=== PATIENT | male | born 1945 | race African-American/Black ===

== ENCOUNTER 2019-05-22 06:08 | Day surgery (SDC) | payer OTHER ==
[2019-05-21 09:34] VITALS: BMI 34.5
--- NOTE | 2019-05-21 13:45 | HP ---
Satellite [facility] - Chief Complaint Chief Complaint: right shoulder pain - Past Medical History Allergies/Adverse Reactions: Allergies Allergy/AdvReac Type Severity Reaction Status Date / Time cyclobenzaprine HCl Allergy Severe hepatitis Verified 12/29/14 14:03 [From Flexeril] - Current Medications Current Medications: Home Medications Medication Instructions Recorded Aspirin [Aspir 81] 81 mg PO DAILY 05/25/12 Cholecalciferol (Vitamin D3) 500 unit PO AM capsule 05/25/12 [Vitamin D3] Losartan Potassium 50 mg PO DAILY 12/29/14 Satellite Physical Exam - Physical Examination General Appearance: Well Nourished, Well Developed, Alert & Oriented x3 ENT: Clear Lung: Normal air movement Extremities: Other (right shoulder- + ttp, decr rom, + empty can, + neer, + malcolm, nvi, MRI + rct) Neurological: Intact, Alert, Oriented Satellite Impression/Plan - Impression/Plan Impression: right shoulder rct Operative Procedure: right shoulder arthroscopy with SAD and possible RCR Date to be Performed: 05/21/19
[2019-05-22] MEDS ORDERED: PROPOFOL 20 ML ONE ×2 (07:27)
[2019-05-22] MEDS ORDERED: ceFAZolin SODIUM 1 GM VIAL ONE (07:27)
[2019-05-22] MEDS ORDERED: DEXAMETHASONE SOD PHOSPHATE 4 MG/1 ML VIAL ONE (07:27)
[2019-05-22] MEDS ORDERED: ROPIVACAINE HCL 0.5% 30ML VIAL ONE (07:28)
[2019-05-22] MEDS ORDERED: SUCCINYLCHOLINE CHLORIDE 200 MG/10 ML SYRINGE ONE (07:28)
[2019-05-22] MEDS ORDERED: MIDAZOLAM HCL 2 MG/2 ML SINGLE DOSE VIAL ONE ×2 (07:29)
[2019-05-22] MEDS ORDERED: ceFAZolin SODIUM 1 GM VIAL IVPB ONE (08:21)
--- NOTE | 2019-05-22 09:42 | OP ---
Operative Note - Note: Operative Date: 05/22/19 ([facility]) Pre-Operative Diagnosis: right shoulder rct Operation: right shoulder arthroscopy with SAD Post-Operative Diagnosis: Same as Pre-op Surgeon: Joshua Cruz Anesthesiologist/NEGOTIATOR SALES: [employer] Anesthesia: General, Local Specimens Removed: shavings Estimated Blood Loss (mls): 5
[2019-05-22 11:33] VITALS: BP 102/63; PULSE 59; TEMP 97.8
[2019-05-22] MEDS ORDERED: oxyCODONE HCL 5 MG TABLET PO PRN (12:12)
[2019-05-22] MEDS ORDERED: ONDANSETRON 4 MG/2 ML VIAL IVPUSH PRN (12:12)
[2019-05-22] MEDS ORDERED: LACTATED RINGERS SOLUTION 1,000 ML IV SCH (12:15)
--- NOTE | 2019-05-23 11:03 | OP ---
DATE OF OPERATION: 05/22/2019 PREOPERATIVE DIAGNOSIS: Right shoulder impingement syndrome, glenohumeral arthritis, possible labral tear, and rotator cuff tear. POSTOPERATIVE DIAGNOSIS: Right shoulder impingement syndrome, glenohumeral arthritis, possible labral tear, and rotator cuff tear. PROCEDURE: Right shoulder arthroscopy, subacromial decompression, distal clavicle excision, and debridement. SURGEON: Joshua Montemayor MD BEREAVEMENT COUNSELOR: TEOFILO Marino ANESTHESIA: DRYWALL INSTALLER. Right interscalene block with LMA anesthesia. DRAINS: None. COMPLICATIONS: None. SPECIMENS: Arthroscopic shavings. BLOOD LOSS: Minimal. BLOOD GIVEN: None. FLUID REPLACEMENT: 1000 mL Plasma-Lyte. INDICATIONS: This patient is a 74-year-old male with a preoperative diagnosis of a right shoulder impingement morphology, glenohumeral arthritis, complete rotator cuff tear, and possible labral tear. After understanding the potential risks, complications, alternatives, and benefits to surgery versus nonsurgical treatment, the patient elected to undergo this procedure. DESCRIPTION OF PROCEDURE: The patient understands that he may have irreparable rotator cuff tear. He may need additional surgery in the future including the possibility of a reverse total shoulder replacement. Extensive preoperative discussions were had. He understands this and has elected to go forward with surgery. The patient was brought to the operating room. Peripheral IV place. IV sedation given; 2 g of IV Ancef were given. A right interscalene block was performed. LMA anesthesia was induced. He was placed into the beach chair position with ample padding throughout. The right upper extremity was prepped and draped in a sterile fashion. Bony landmarks were marked out with a marking pen. A posterior portal established and diagnostic glenohumeral arthroscopy was performed. Immediately it was apparent that there was a lot of intra-articular pathology. The patient had significant osteoarthritis of both the humeral head and the glenoid. The labrum looked quite frayed. The biceps tendon was gone, and the entire rotator cuff was gone. I could directly visualize the undersurface of the acromion from the glenohumeral side. An anterior portal was established under direct visualization using a spinal needle. A No. 15 scalpel blade and a green cannula were introduced into the glenohumeral joint. Using the ArthroCare wand and the straight shaver, I cleaned up the joint, got rid of a lot of synovitis, the frayed edges of the labrum, the biceps tendon, the rotator cuff and did debridement chondroplasties off both the glenoid and the humeral side. It cleaned up the joint significantly removing loose bodies and cartilage as well. Next, our attention turned to the subacromial space. The patient had a tremendous amount of inflammatory bursitis. A lateral portal was established first with a spinal needle under direct visualization then a green cannula was introduced into the subacromial space and a soft tissue bursectomy was performed with the ArthroCare wand and the straight shaver. After this extensive debridement was completed, this revealed a very large anterior subacromial spur but also a chronic deformity of the undersurface of the acromion consistent with rotator cuff arthropathy. There was a space for the humeral head to come in, and it rounded off the undersurface of the acromion. The 5.5-mm oval bur was used to do a bony decompression on the undersurface of the acromion. It was fine tuned and reversed and done with a straight shaver. Once this was done, there was a lot more room as the high-riding humeral head had previously interfered with our ability to assess the rotator cuff. The arm was put through a full range of motion. There were no points of impingement. The patient's head was completely bald. There was some rotator cuff retracted all the way past the glenoid medially. It was able to grasp it with the grasper, but I was not able to get it beyond the lip of the glenoid. I made extensive attempts to mobilize it further with no success. There was no rotator cuff anteriorly whatsoever. There was what appeared to be infraspinatus and perhaps the posterior portion of the supraspinatus, which had retracted posteriorly well past the mid axis of the humeral head. Some of this was able to be brought up, but it was still quite posterior, nothing was lateral, and there was nothing to repair it to. The area was copiously irrigated and washed out. Additional extensive attempts were made to mobilization the rotator cuff, but the patient clearly had a longstanding, chronic rotator cuff tear and retraction and a rotator cuff arthropathy. There was nothing to repair. The area was copiously irrigated and washed out. All instrumentation, excess saline, and debris were removed. The arthroscopy portals were closed with 3-0 nylon sutures. The area was then washed and dried, covered with Aquacel dressing. Total surgical time was about 40 minutes. There were no complications during the case. He was brought down out of the beach chair position, extubated. He had no events during the case. There was minimal blood loss, and he was brought to the ambulatory recovery room in stable condition. JOSHUA MONTEMAYOR M.D. [id number]
--- NOTE | 2019-05-23 18:47 | PATH ---
Surgical Pathology Report Patient Name: ESTRADA GEORGE Med. Rec. #: [id number] /Age/Gender: 1945 (Age: 74) / M Account: [id number] Location: [facility] SURGICAL Taken: 05/22/2019 Received: 05/22/2019 Reported: 05/23/2019 Physicians: Joshua Cruz M.D. Specimen(s) Received RIGHT SHOULDER SHAVINGS Clinical History Right shoulder tear Final Diagnosis RIGHT SHOULDER SHAVINGS: FRAGMENTS OF BONE, SKELETAL MUSCLE, CARTILAGE, AND SYNOVIAL TISSUE WITH FOCAL FIBROSIS. Electronically Signed Blake Belle M.D. Gross Description Received in formalin, labeled "right shoulder shavings," is a 3.6 x 3.4 x 0.3 cm. aggregate of hagan-yellow soft tissue fragments. A asset protection representative portion is submitted in one cassette. /05/22/2019/05/22/2019
== END 2019-05-22 13:00 | disposition home or self-care (01) ==
LOC: JASU-SURG 06:08
PROVIDERS: ATTEND Orthopaedic Surgery
PROC: 0RBJ4ZZ Excision of Right Shoulder Joint, Percutaneous Endoscopic Approach (ICD-10-PCS; 2019-05-22)
PROC: 0PB94ZZ Excision of Right Clavicle, Percutaneous Endoscopic Approach (ICD-10-PCS; principal; 2019-05-22 08:00)
DX: M75.41 Impingement syndrome of right shoulder (principal); M75.121 Complete rotator cuff tear or rupture of right shoulder, not specified as traumatic; M19.011 Primary osteoarthritis, right shoulder; M65.811 Other synovitis and tenosynovitis, right shoulder; M75.51 Bursitis of right shoulder; I10 Essential (primary) hypertension; E78.5 Hyperlipidemia, unspecified; E11.9 Type 2 diabetes mellitus without complications; Z79.84 Long term (current) use of oral hypoglycemic drugs
CPT/HCPCS: 82962; 94760

== ENCOUNTER 2022-02-23 19:19 | Emergency (ER) | payer OTHER ==
[2022-02-23 19:46] VITALS: BP 118/77; PULSE 75; RESP 16; TEMP 98.7; BMI 32.3
[2022-02-23] MEDS ORDERED: LIDOCAINE 5% TOPICAL PATCH TP ONE (19:48)
[2022-02-23] MEDS ORDERED: ACETAMINOPHEN 325 MG TABLET (FP) PO ONE (19:48)
[2022-02-23] MEDS ORDERED: LIDOCAINE 5% TOPICAL PATCH ONE (19:51)
[2022-02-23] MEDS ORDERED: ACETAMINOPHEN 325 MG TABLET (FP) ONE (19:52)
[2022-02-23] MEDS ORDERED: LIDOCAINE PATCH REMOVAL MC SCH (22:00)
== END 2022-02-23 20:01 | disposition home or self-care (01) ==
LOC: FER 19:19
DX: M54.50 Low back pain, unspecified (principal); V49.40XA Driver injured in collision with unspecified motor vehicles in traffic accident, initial encounter
CPT/HCPCS: 99283-25

== ENCOUNTER 2024-08-01 06:38 | Day surgery (SDC) | payer OTHER ==
[2024-07-26 13:40] VITALS: BMI 32.4
[2024-08-01 10:28] VITALS: TEMP 98
[2024-08-01 10:31] VITALS: RESP 18
[2024-08-01 12:47] VITALS: BP 102/60; PULSE 70
== END 2024-08-01 11:53 | disposition home or self-care (01) ==
LOC: JASU-ENDO 06:38
PROVIDERS: ATTEND Internal Medicine Gastroenterology
PROC: 0DDH8ZX Extraction of Cecum, Via Natural or Artificial Opening Endoscopic, Diagnostic (ICD-10-PCS; 2024-08-01)
PROC: 0DBL8ZX Excision of Transverse Colon, Via Natural or Artificial Opening Endoscopic, Diagnostic (ICD-10-PCS; 2024-08-01)
PROC: 3E0H8GC Introduction of Other Therapeutic Substance into Lower GI, Via Natural or Artificial Opening Endoscopic (ICD-10-PCS; principal; 2024-08-01 09:00)
DX: Z12.11 Encounter for screening for malignant neoplasm of colon (principal); D12.3 Benign neoplasm of transverse colon; D12.0 Benign neoplasm of cecum; Z86.0101 Personal history of adenomatous and serrated colon polyps; I10 Essential (primary) hypertension; E11.9 Type 2 diabetes mellitus without complications; Z79.84 Long term (current) use of oral hypoglycemic drugs
CPT/HCPCS: 82962; 88305-TC

== ENCOUNTER 2024-10-15 06:49 | Inpatient (IN) | payer OTHER ==
[2024-10-10 08:56] VITALS: BMI 32.5
[2024-10-15] MEDS ORDERED: HEPARIN NA (PORCINE) 5,000 UNITS/ML 1ML VIAL ONE (10:29)
[2024-10-15] MEDS ORDERED: cefOXitin SODIUM 2 GM VIAL (RESTRICTED TO ID) IVPB ONE ×2 (10:29→15:32)
[2024-10-15] MEDS ORDERED: INDOCYANINE GREEN 25 MG/10 ML VIAL IVPUSH ONE (10:29)
[2024-10-15] MEDS ORDERED: BUPIVACAINE HCL/PF 0.25% (2.5MG/ML) 10 ML VIAL ONE (10:29)
[2024-10-15] MEDS ORDERED: LIDOCAINE HCL/PF 2% SDV 5ML VIAL ONE (10:43)
[2024-10-15] MEDS ORDERED: PROPOFOL 20 ML ONE (10:44)
[2024-10-15] MEDS ORDERED: MIDAZOLAM HCL 2 MG/2 ML SINGLE DOSE VIAL ONE (10:44)
[2024-10-15] MEDS ORDERED: ROCURONIUM BROMIDE 50 MG/5 ML SYRINGE ONE ×3 (10:44→13:56)
[2024-10-15] MEDS: cefOXitin SODIUM 1 GM VIAL (RESTRICTED TO ID) IVPB ONE (11:50)
[2024-10-15] MEDS: BUPIVACAINE HCL/PF 0.25% (2.5MG/ML) 10 ML VIAL IJ ONE ×2 (12:04)
[2024-10-15] MEDS ORDERED: SUGAMMADEX SODIUM 200 MG/2 ML VIAL ONE (15:47)
[2024-10-15] MEDS ORDERED: KETOROLAC TROMETHAMINE 30 MG/1 ML VIAL ONE (15:52)
[2024-10-15] MEDS ORDERED: ACETAMINOPHEN INJECTION 100 ML ONE (15:52)
[2024-10-15] MEDS: LACTATED RINGERS SOLUTION 1,000 ML/1,000 ML INFUS.BAG IV SCH (16:45)
[2024-10-15] MEDS ORDERED: CEFOXITIN SODIUM 2 GM in DEXTROSE 5%-WATER 100 ML IVPB SCH (20:00)
[2024-10-15] MEDS: ATORVASTATIN CA 40 MG TABLET (FP) PO SCH (21:30)
[2024-10-15] MEDS: INSULIN ASPART SLIDING SCALE (NOVOLOG) 1 VIAL SQ SCH (21:32)
[2024-10-15] MEDS: ACETAMINOPHEN 1000 MG/100 ML BAG IVPB SCH (23:17)
[2024-10-16] MEDS: CEFOXITIN SODIUM 2 GM in DEXTROSE 5%-WATER 100 ML IVPB SCH (00:29)
[2024-10-16 07:37] LABS: BASOPHILS # 0.02 x10^3/uL (0.01-0.08); MCHC 31.3 g/dl (32.3-36.5); RDW 13.2 % (12.2-16.6)
[2024-10-16 07:39] LABS: ABSOLUTE IMMATURE GRANULOCYTES 0.03 x10^3/uL (0.0-0.031); EOSINOPHIL % 1.5 % (0.8-7.0); EOSINOPHILS # 0.09 x10^3/uL (0.04-0.54); IMMATURE PLATELET FRACTION # 11.50 x10^3/uL; MEAN CELL VOLUME 93.4 fl (79.0-92.2); MEAN PLT VOLUME 11.7 fl (9.4-12.4); MONOCYTE # 0.79 x10^3/uL (0.30-0.82); MONOCYTE % 12.9 % (5.3-12.2)
[2024-10-16 07:56] LABS: CO2 29.0 mmol/L (21-32); GLUCOSE,RANDOM 107.0 mg/dL (74-106)
[2024-10-16 08:01] LABS: CREATININE 1.2 mg/dL (0.55-1.3)
[2024-10-16] MEDS: CEFOXITIN SODIUM 2 GM in DEXTROSE 5%-WATER - 100 ML IVPB ONE (08:25)
[2024-10-16] MEDS: ACETAMINOPHEN 1000 MG/100 ML BAG IVPB ONE (08:26)
[2024-10-16] MEDS: ENOXAPARIN NA (PORCINE) 40 MG/0.4 ML DISP.SYRIN SQ SCH (09:13)
[2024-10-16] MEDS: LOSARTAN POTASSIUM 25 MG TABLET PO SCH (09:13)
[2024-10-16] MEDS ORDERED: ACETAMINOPHEN 500 MG TABLET (FP) PO PRN (17:00)
[2024-10-16 22:06] LABS: RDW 13.3 % (12.2-16.6)
[2024-10-16 22:08] LABS: IMMATURE PLATELET FRACTION # 12.80 x10^3/uL; MCHC 31.4 g/dl (32.3-36.5); MEAN CELL VOLUME 93.8 fl (79.0-92.2); MEAN PLT VOLUME 11.0 fl (9.4-12.4)
[2024-10-16 22:27] LABS: CREATININE 1.4 mg/dL (0.55-1.3)
[2024-10-16 22:36] LABS: CO2 29.0 mmol/L (21-32); GLUCOSE,RANDOM 98.0 mg/dL (74-106)
[2024-10-17 06:06] VITALS: BP 104/72; TEMP 98.7
[2024-10-17 08:41] LABS: ABSOLUTE IMMATURE GRANULOCYTES 0.04 x10^3/uL (0.0-0.031); BASOPHILS # 0.05 x10^3/uL (0.01-0.08); EOSINOPHIL % 2.1 % (0.8-7.0); EOSINOPHILS # 0.17 x10^3/uL (0.04-0.54); MCHC 31.3 g/dl (32.3-36.5); MEAN CELL VOLUME 93.5 fl (79.0-92.2); MEAN PLT VOLUME 11.7 fl (9.4-12.4); MONOCYTE # 0.83 x10^3/uL (0.30-0.82); MONOCYTE % 10.2 % (5.3-12.2); RDW 13.2 % (12.2-16.6)
[2024-10-17 08:58] VITALS: PULSE 70
[2024-10-17 09:17] LABS: CO2 26.0 mmol/L (21-32); GLUCOSE,RANDOM 106.0 mg/dL (74-106)
[2024-10-17 09:20] LABS: CREATININE 1.0 mg/dL (0.55-1.3)
[2024-10-17] MEDS: CEFOXITIN SODIUM 2 GM in DEXTROSE 5%-WATER - 100 ML IVPB ONE (09:39)
[2024-10-17 14:00] VITALS: RESP 16
== END 2024-10-17 12:55 | disposition home health service (06) | DRG 331 ==
LOC: J2C 06:49 → J4S 18:18 → J7W 10-16 13:32
PROVIDERS: ADMIT Surgery; ATTEND Nurse Practitioner Acute Care
PROC: 8E0W8CZ Robotic Assisted Procedure of Trunk Region, Via Natural or Artificial Opening Endoscopic (ICD-10-PCS; 2024-10-15)
PROC: 0DTF4ZZ Resection of Right Large Intestine, Percutaneous Endoscopic Approach (ICD-10-PCS; principal; 2024-10-15 10:30)
DX: D12.0 Benign neoplasm of cecum (principal); I10 Essential (primary) hypertension; E11.9 Type 2 diabetes mellitus without complications; E78.5 Hyperlipidemia, unspecified; G47.33 Obstructive sleep apnea (adult) (pediatric); E66.9 Obesity, unspecified; Z68.32 Body mass index [BMI] 32.0-32.9, adult
CPT/HCPCS: 36415; 80048; 82962; 83735; 84100; 85025; 85027; 86140; 86850; 86900; 86901; 88309-TC; 88329; 94010; 94660; 94760; 97116-GP; 97161-GP